=== PATIENT | male | born 2000 | race Caucasian/White ===

== ENCOUNTER 2022-06-02 22:06 | Emergency (ER) | payer SELFPAY ==
[2022-06-02] MEDS ORDERED: Sodium Chloride 0.9% 2.5 ML Syringe FLUSH PRN (22:47)
[2022-06-02] MEDS ORDERED: Sodium Chloride 0.9% 1,000 ML IV ONE (22:47)
[2022-06-02] MEDS ORDERED: Sodium Chloride 0.9% 10 ML Syringe FLUSH PRN (22:47)
[2022-06-02 23:34] LABS: POTASSIUM,K 3.5 mmol/L (3.5-5.1)
== END 2022-06-03 00:11 | disposition home or self-care (01) ==
LOC: MW.ED 22:06
DX: R42 Dizziness and giddiness (principal); Z20.822 Contact with and (suspected) exposure to COVID-19
CPT/HCPCS: 36415; 80053; 84484; 85025; 87635; 96360; 99284; J3490; J7030; 93010; 99283; U0002

== ENCOUNTER 2024-03-23 06:13 | Emergency (ER) | payer SELFPAY | END 2024-03-23 07:29 | disposition home or self-care (01) | LOC: MW.ED 06:13 | DX: F41.9 Anxiety disorder, unspecified (principal) | CPT/HCPCS: 99283 ==